=== PATIENT | female | born 1955 | race Caucasian/White ===

== ENCOUNTER 2018-01-22 09:28 | Day surgery (SDC) | payer MEDICARE, OTHER ==
[~2018-01-22] VITALS: Ht 167.6 cm; Wt 82.1 kg
[2018-01-22] VITALS (11 sets, daily range): BP systolic 101–139; BP diastolic 56–79
[~2018-01-22 09:28] MED LIST: Tetracaine 0.5% Opth 4ml Soln RIGHT EYE SCH
[2018-01-22] MEDS ORDERED: Phenylephrine 2.5% Op 2ml Soln ONE (10:02)
[2018-01-22] MEDS ORDERED: Tetracaine 0.5% Opth 4ml Soln ONE ×2 (10:02→10:45)
[2018-01-22] MEDS ORDERED: Vigamox Opth Soln 3ml ONE (10:02)
[2018-01-22] MEDS ORDERED: Cyclopentolate 1% Opth Sol 2ml ONE (10:02)
[2018-01-22] MEDS: Phenylephrine 2.5% Op 2ml Soln RIGHT EYE SCH ×3 (10:15→10:51)
[2018-01-22] MEDS: Vigamox Opth Soln 3ml RIGHT EYE SCH ×3 (10:15→10:51)
[2018-01-22] MEDS: Cyclopentolate 1% Opth Sol 2ml RIGHT EYE SCH ×3 (10:15→10:51)
[2018-01-22] MEDS ORDERED: Lidocaine 1% MPF 10mg/ml 5ml ONE (10:43)
[2018-01-22] MEDS ORDERED: Lidocaine 4% Amp ONE (10:43)
[2018-01-22] MEDS ORDERED: EPINEPHrine 1mg/1ml Amp ONE (10:43)
[2018-01-22] MEDS ORDERED: Lidocaine 2% MPF 5ml Vial INJ ONE (10:43)
[2018-01-22] MEDS ORDERED: BSS 15ml BTL ONE (10:44)
[2018-01-22] MEDS ORDERED: BSS 500ml btl ONE (10:44)
[2018-01-22] MEDS ORDERED: Dexamethasone 4mg/ml vial ONE (10:44)
[2018-01-22] MEDS ORDERED: Maxitrol Opth Oint 3.5gm ONE (10:44)
[2018-01-22] MEDS ORDERED: Povidone-Iodine 5% opth solution ONE (10:44)
[2018-01-22] MEDS ORDERED: Acetylcholine Injection (OR) ONE (10:45)
[2018-01-22] MEDS ORDERED: Bupivacaine 0.75% 30ml vial INJ ONE (10:45)
[2018-01-22] MEDS ORDERED: XOPENEX HFA15 GM IH (10:50)
[2018-01-22] MEDS ORDERED: MONTELUKAST SOD10 MG ORAL (10:50)
[2018-01-22] MEDS ORDERED: ATORVASTATIN CA20 MG ORAL (10:50)
[2018-01-22] MEDS ORDERED: BUSPIRONE HCL5 M1 ORAL (10:50)
[2018-01-22] MEDS ORDERED: AMLODIPINE BESY10 MG ORAL (10:50)
[2018-01-22] MEDS ORDERED: PANTOPRAZOLE SO40 MG ORAL (10:50)
[2018-01-22] MEDS ORDERED: WELLBUTRIN XL150 MG ORAL (10:50)
[2018-01-22] MEDS ORDERED: GABAPENTIN100 MG ORAL (10:50)
[2018-01-22] MEDS ORDERED: DIPHENHYDRAMINE25 M1 ORAL (10:50)
[2018-01-22] MEDS ORDERED: ZYRTEC10 MG ORAL (10:50)
[2018-01-22] MEDS ORDERED: CYCLOBENZAPRINE10 MG ORAL (10:50)
[2018-01-22] MEDS ORDERED: XANAX0.5 MG ORAL (10:50)
[2018-01-22] MEDS ORDERED: FOSAMAX70 MG ORAL (10:50)
[2018-01-22] MEDS ORDERED: FLONASE ALLERG9.9 ML NS (10:50)
[2018-01-22] MEDS ORDERED: CELEXA40 MG ORAL (10:50)
--- NOTE | 2018-01-22 11:13 | Pre-Procedure Note/Attestation ---
Pre-Procedure Note/Attestation Complete Prior to Procedure Planned Procedure: right Procedure Narrative: cataract extraction with intraocular lens implant Indications for Procedure Pre-Operative Diagnosis: right cataract Attestation I attest that I discussed the nature of the procedure; its benefits; risks and complications; and alternatives (and the risks and benefits of such alternatives ), prior to the procedure, with the patient (or the patient's legal route sales representative). I attest that, if there was a reasonable possibility of needing a blood transfusion, the patient (or the patient's legal route sales representative) was given the [facility] standardized written summary, pursuant to the Jay Jay Beti Blood Safety Act ([place] Health and Safety Code # 1645, as amended). I attest that I re-evaluated the patient just prior to the surgery and that there has been no change in the patient's H&P, except as documented below: Barrett Estevez MD January 22, 2018 11:13
[2018-01-22] MEDS ORDERED: LR 1000ml 1,000 ML IVLG SCH (11:53)
[2018-01-22] MEDS ORDERED: fentaNYL 100 mcg/2 mL IV PRN (12:00)
[2018-01-22] MEDS ORDERED: Midazolam 2mg/2ml Inj IVP PRN (12:00)
[2018-01-22] MEDS ORDERED: DiphenhydrAMINE 50mg/ml Inj IVP PRN (12:00)
--- NOTE | 2018-01-22 12:05 | Anethesia Preoperative Eval ---
Anesthesia Pre-op PMH/ROS General Date of Evaluation: January 22, 2018 Time of Evaluation: 11:05 Anesthesiologist: Jordyn ASA Score: ASA 3 Mallampati Score Class I : Soft palate, uvula, fauces, pillars visible Class II: Soft palate, uvula, fauces visible Class III: Soft palate, base of uvula visible Class IV: Only hard plate visible Mallampati Classification: Class III Surgeon: Herb Diagnosis: Cataract right eye Surgical Procedure: Extraction of cataract with IOL Allergies: Coded Allergies: No Known Allergies (Unverified , 01/21/18) Past Medical History Cardiovascular: Reports: HTN Pulmonary: Reports: asthma, COPD, FRITZ Gastrointestinal/Genitourinary: Reports: GERD Neurologic/Psychiatric: Reports: depression/anxiety HEENT: Reports: cataract (R) PMH Narrative: HTN, COPD, asthma, GERD, FRITZ PSxH Narrative: Anesthesia Pre-op Phys. Exam Physician Exam Last Vital Signs Date Time Temp Pulse Resp B/P (MAP) Pulse Ox O2 Delivery O2 Flow Rate FiO2 01/22/18 10:32 98.4 94 18 139/79 97 Room Air 98.4 Constitutional: NAD Neurologic: CN 2-12 intact Cardiovascular: RRR, no M/R/G Respiratory: CTA Gastrointestinal: S/NT/ND Airway Exam Mallampati Score: Class II MO: full ROM: full Dentures: upper, lower Anesthesia Pre-op A/P Studies Pre-op Studies: EKG - LBBB Risk Assessment & Plan Assessment: Class 3 patient for extraction of cataract under GA Plan: GA, LMA Status Change Before Surgery: No Pre-Antibiotics Drug: None Jay Jay Cobb MD January 22, 2018 12:05
--- NOTE | 2018-01-22 12:06 | Immediate Post-Op Evaluation ---
Immediate Post-Op Evalulation Immediate Post-Op Evalulation Procedure: Extraction of cataract with IOL right eye Date of Evaluation: January 22, 2018 Time of Evaluation: 12:35 IV Fluids: 650 Blood Pressure Systolic: 128 Blood Pressure Diastolic: 78 Pulse Rate: 99 Respiratory Rate: 20 O2 Sat by Pulse Oximetry: 100 Temperature (Fahrenheit): 97.4 Pain Score (1-10): 0 Nausea: No Vomiting: No Complications No complication Patient Status: awake, patent, none Hydration Status: adequate Drug: None Jay Jay Cobb MD January 22, 2018 12:06
--- NOTE | 2018-01-22 12:35 | 48 Hour Post Anesthesia Eval ---
Post Anesthesia Evaluation Procedure: Extraction of cataract with IOL right eye Date of Evaluation: January 22, 2018 Time of Evaluation: 13:00 Blood Pressure Systolic: 130 0: 78 Pulse Rate: 94 Respiratory Rate: 18 O2 Sat by Pulse Oximetry: 99 Airway: patent Nausea: No Vomiting: No Pain Intensity: 0 Hydration Status: adequate Cardiopulmonary Status: Stable Mental Status/LOC: patient returned to baseline Follow-up Care/Observations: As per surgery Post-Anesthesia Complications: No anesthetic complication Follow-up care needed: N/A Jay Jay Cobb MD January 22, 2018 12:35
--- NOTE | 2018-01-22 12:41 | Discharge Instructions ---
Discharge Instructions Discharge Instructions Diet: regular Resume Normal Activity?: No Activity: light activity Follow Up Orders Return Dr. Estevez's office in 24 hours Return to Work/School on: February 07, 2018 Special Instructions bring all prescribed eye drops to the office For Surgical Patients Dressing Care: other Elevate: other May shower: No Contact your physician for: pain For Congestive Heart Failure Reminder Report to your physician any weight gain of 5 pounds or more in one week. Barrett Estevez MD January 22, 2018 12:41
--- NOTE | 2018-01-23 00:30 | Operative Note - Dictated ---
DATE OF OPERATION: 01/22/2018 PREOPERATIVE DIAGNOSES: 1. Degenerative cataract, right eye. 2. Epiretinal membrane, right eye. POSTOPERATIVE DIAGNOSES: 1. Degenerative cataract, right eye. 2. Epiretinal membrane, right eye. PROCEDURE: Right extracapsular cataract extraction by phacoemulsification and primary insertion of posterior chamber intraocular lens implant. SURGEON: Barrett Estevez M.D. ANESTHESIA: MAC by Dr. Cobb. INDICATIONS: This patient suffers from many systemic and mental disorders and has decreased function and quality of life because of vision. Both she and the staff in the house she lives have noticed a decrease in performance due to vision and requests the performance of cataract surgery. Because of the above issues, general anesthesia was chosen. FINDINGS: See indications and diagnoses. DESCRIPTION OF PROCEDURE: The patient received preoperatively topical antibiotics, dilating drops, tetracaine, and was brought to the operating room and given satisfactory general anesthesia by Dr. Cobb. The patient was then prepped and draped in usual manner. A Paty speculum was placed and a vertical incision was placed at the lateral limbus just anterior to the arcade, 3 mm wide. The anterior chamber was penetrated at the 6 and 12 o'clock positions and slowly decompressed. Shugarcaine was then instilled to further dilate the pupil followed by viscoelastic. The anterior chamber was penetrated through the vertical incision with a microkeratome. A capsulorrhexis was done followed by hydrodissection. The nucleus was phacoemulsified with a [employer] Inf[employer] unit and cortical remnants were gently removed with the I/A tip of the same unit. The intraocular lens was removed from its sac. It is a model [id number] from [employer]. The power is 20.5 D, the serial number #[id number]. The lens was carefully inspected, loaded onto a [place] II delivery system and delivered into the capsular bag with the haptics dialed to the horizontal meridian and the tap test confirming the adequate placement of the lens. The I/A tip was used to remove viscoelastic. Miochol was then instilled creating narrowing of the pupil. The incision was hydrated and despite them being watertight, the main incision was closed with a single 10-0 nylon suture due to the patient's disposition. Dexamethasone was injected into the inferior tenon space. Also, 2 mL of Xylocaine 2% with epinephrine were injected into the inferior tenon space in order to control postoperative pain. Vigamox drops and TobraDex ointment were applied. The eye was closed and patch and shield were applied. The patient tolerated well the procedure and left the operating room in good condition. Barrett Estevez M.D. DR: KOLBY JOB#: [id number] CC: MAGDALENA
== END 2018-01-22 14:00 | disposition home or self-care (01) ==
LOC: SUR 09:28
DX: H26.221 Cataract secondary to ocular disorders (degenerative) (inflammatory), right eye (principal); H35.371 Puckering of macula, right eye; F41.9 Anxiety disorder, unspecified; K21.9 Gastro-esophageal reflux disease without esophagitis; E78.5 Hyperlipidemia, unspecified; I10 Essential (primary) hypertension; Z87.891 Personal history of nicotine dependence; G47.33 Obstructive sleep apnea (adult) (pediatric); M81.0 Age-related osteoporosis without current pathological fracture; J44.9 Chronic obstructive pulmonary disease, unspecified; F32.9 Major depressive disorder, single episode, unspecified
CPT/HCPCS: 66984; J0171; J1100; J3010; J3370; J3490

== ENCOUNTER 2018-03-05 09:21 | Day surgery (SDC) | payer MEDICARE, OTHER ==
[2018-03-05] VITALS (10 sets, daily range): BP systolic 109–140; BP diastolic 68–82
[~2018-03-05] VITALS: Ht 167.6 cm; Wt 81.6 kg
[~2018-03-05 09:21] MED LIST changes: +AMLODIPINE BESY10 MG ORAL; +ATORVASTATIN CA20 MG ORAL; +BUSPIRONE HCL5 M1 ORAL; +CELEXA40 MG ORAL; +CYCLOBENZAPRINE10 MG ORAL; +DIPHENHYDRAMINE25 M1 ORAL; +FLONASE ALLERG9.9 ML NS; +FOSAMAX70 MG ORAL; +GABAPENTIN100 MG ORAL; +MONTELUKAST SOD10 MG ORAL; +PANTOPRAZOLE SO40 MG ORAL; +Tetracaine 0.5% Opth 4ml Soln LEFT EYE SCH; -Tetracaine 0.5% Opth 4ml Soln RIGHT EYE SCH; +WELLBUTRIN XL150 MG ORAL; +XANAX0.5 MG ORAL; +XOPENEX HFA15 GM IH; +ZYRTEC10 MG ORAL
[2018-03-05] MEDS ORDERED: Cyclopentolate 1% Opth Sol 2ml ONE (09:39)
[2018-03-05] MEDS: Vigamox Opth Soln 3ml LEFT EYE SCH ×3 (09:48→10:19)
[2018-03-05] MEDS: Cyclopentolate 1% Opth Sol 2ml LEFT EYE SCH ×3 (09:48→10:19)
[2018-03-05] MEDS: Phenylephrine 2.5% Op 2ml Soln LEFT EYE SCH ×3 (09:48→10:19)
[2018-03-05] MEDS ORDERED: BREO ELLIPTA 11 EACH IH (10:00)
[2018-03-05] MEDS ORDERED: ATROVENT HFA12.9 GM IH (10:01)
[2018-03-05] MEDS ORDERED: EPINEPHrine 1mg/1ml Amp ONE (10:27)
[2018-03-05] MEDS ORDERED: Lidocaine 2% MPF 5ml Vial INJ ONE (10:28)
[2018-03-05] MEDS ORDERED: Alfentanil 2ml Inj ONE (10:47)
[2018-03-05] MEDS ORDERED: Midazolam 2mg/2ml Inj ONE (10:48)
[2018-03-05] MEDS ORDERED: Propofol 200mg/20ml IV ONE (11:00)
[2018-03-05] MEDS ORDERED: Lidocaine 1% MPF 10mg/ml 5ml ONE (11:00)
[2018-03-05] MEDS ORDERED: NS Irrig 1000ml ONE (11:00)
[2018-03-05] MEDS ORDERED: LR 1000ml ONE (11:00)
[2018-03-05] MEDS ORDERED: Sterile Water Irrig 1000ml IRRIG ONE (11:00)
[2018-03-05] MEDS ORDERED: LR 1000ml 1,000 ML IVLG SCH (11:02)
--- NOTE | 2018-03-05 11:08 | Anethesia Preoperative Eval ---
Anesthesia Pre-op PMH/ROS General Date of Evaluation: Mar 05, 2018 Time of Evaluation: 11:06 Anesthesiologist: Shane ASA Score: ASA 3 Mallampati Score Class I : Soft palate, uvula, fauces, pillars visible Class II: Soft palate, uvula, fauces visible Class III: Soft palate, base of uvula visible Class IV: Only hard plate visible Mallampati Classification: Class III Surgeon: Herb Diagnosis: Cataract OS Surgical Procedure: Cat Ext IOL OS Anesthesia History: none Social History: smoking Family History: no anesthesia problems Allergies: Coded Allergies: No Known Allergies (Unverified , 01/21/18) Medications: see eMAR Past Medical History Cardiovascular: Reports: HTN, other - HL Pulmonary: Reports: asthma, COPD, other - Pneumonia Gastrointestinal/Genitourinary: Reports: GERD, other - Hiatal Hernia Neurologic/Psychiatric: Reports: depression/anxiety HEENT: Reports: cataract (L), cataract (R) Other: obesity - BMI 31 PSxH Narrative: C/S, Esophagael SX Anesthesia Pre-op Phys. Exam Physician Exam Last Vital Signs Date Time Temp Pulse Resp B/P (MAP) Pulse Ox O2 Delivery O2 Flow Rate FiO2 03/05/18 10:10 97.3 97 18 126/68 96 Room Air 97.3 Constitutional: NAD Neurologic: CN 2-12 intact Cardiovascular: RRR Respiratory: CTA Gastrointestinal: S/NT/ND Airway Exam Mallampati Score: Class III MO: full ROM: limited Teeth: missing, intact Anesthesia Pre-op A/P Risk Assessment & Plan Assessment: ASA 3 Plan: GA Status Change Before Surgery: No Sahrad Lynn MD Mar 05, 2018 11:08
--- NOTE | 2018-03-05 11:09 | Immediate Post-Op Evaluation ---
Immediate Post-Op Evalulation Immediate Post-Op Evalulation Procedure: Cat Ext IOL OS Date of Evaluation: Mar 05, 2018 Time of Evaluation: 12:34 IV Fluids: 600 LR Blood Products: 0 Estimated Blood Loss: 1 Urinary Output: 0 Blood Pressure Systolic: 140 Blood Pressure Diastolic: 81 Pulse Rate: 98 Respiratory Rate: 16 O2 Sat by Pulse Oximetry: 100 Temperature (Fahrenheit): 97.8 Pain Score (1-10): 1 Nausea: No Vomiting: No Complications 0 Patient Status: awake, reacts, patent, none Hydration Status: adequate Sharad Lynn MD Mar 05, 2018 11:09
--- NOTE | 2018-03-05 11:10 | 48 Hour Post Anesthesia Eval ---
Post Anesthesia Evaluation Procedure: Cat Ext IOL OS Date of Evaluation: Mar 05, 2018 Time of Evaluation: 14:46 Blood Pressure Systolic: 152 0: 78 Pulse Rate: 91 Respiratory Rate: 18 Temperature (Fahrenheit): 98.2 O2 Sat by Pulse Oximetry: 97 Airway: patent Nausea: No Vomiting: No Pain Intensity: 1 Hydration Status: adequate Cardiopulmonary Status: Stable Mental Status/LOC: patient returned to baseline Follow-up Care/Observations: 0 Post-Anesthesia Complications: 0 Follow-up care needed: ready to discharge Sharad Lynn MD Mar 05, 2018 11:10
[2018-03-05] MEDS ORDERED: oxyCODONE HCL/Acetaminophen 5/325mg ORAL PRN (11:15)
[2018-03-05] MEDS ORDERED: Midazolam 2mg/2ml Inj IVP PRN (11:15)
[2018-03-05] MEDS ORDERED: Metoclopramide 10mg/2ml Inj IVP PRN (11:15)
[2018-03-05] MEDS ORDERED: Hydromorphone 0.5mg/0.5ml inj IVP PRN (11:15)
[2018-03-05] MEDS ORDERED: Ketorolac 30mg Inj IV PRN ×2 (11:15)
[2018-03-05] MEDS ORDERED: Labetalol 5mg/ml 20ml vial IV PRN (11:15)
[2018-03-05] MEDS ORDERED: DiphenhydrAMINE 50mg/ml Inj IVP PRN (11:15)
[2018-03-05] MEDS ORDERED: HYDROcodone/Acetamin 7.5/325 tab ORAL PRN (11:15)
[2018-03-05] MEDS ORDERED: fentaNYL 100 mcg/2 mL IV PRN (11:15)
[2018-03-05] MEDS ORDERED: Atropine Inj 1mg/10ml Syr IV PRN (11:15)
[2018-03-05] MEDS ORDERED: Norco 5mg/325mg tab ORAL PRN (11:15)
[2018-03-05] MEDS ORDERED: LORazepam Inj 2mg/ml 1ml IV PRN (11:15)
--- NOTE | 2018-03-05 11:29 | Pre-Procedure Note/Attestation ---
Pre-Procedure Note/Attestation Complete Prior to Procedure Planned Procedure: left Procedure Narrative: cataract extraction with intraocular lens implant Indications for Procedure Pre-Operative Diagnosis: left cataract Attestation I attest that I discussed the nature of the procedure; its benefits; risks and complications; and alternatives (and the risks and benefits of such alternatives ), prior to the procedure, with the patient (or the patient's legal human resources representative). I attest that, if there was a reasonable possibility of needing a blood transfusion, the patient (or the patient's legal human resources representative) was given the [facility] standardized written summary, pursuant to the Jay Jay Beti Blood Safety Act ([place] Health and Safety Code # 1645, as amended). I attest that I re-evaluated the patient just prior to the surgery and that there has been no change in the patient's H&P, except as documented below: Barrett Estevez MD Mar 05, 2018 11:29
--- NOTE | 2018-03-05 12:30 | Brief Operative Note ---
Immediate Post Operative Note Operative Note Chief Complaint: blurred vision Pre-op Diagnosis: left cataract Procedure: left cataract extraction with intraocular lens implant left eye. removal of suture right eye Post-op Diagnosis: same Post-op Diagnosis: same as pre-op Surgeon: barrett carbajal Police Commissioner: none Additional Surgeons: none Anesthesiologist: Ilana Anesthesia: general Specimen: none Complications: none Condition: stable Fluids: LR tko Estimated Blood Loss: none Drains: none Implant(s) used?: Yes Barrett Carbajal MD Mar 05, 2018 12:30
--- NOTE | 2018-03-05 19:30 | Operative Note - Dictated ---
DATE OF OPERATION: 03/05/2018 PREOPERATIVE DIAGNOSES: 1. Degenerative cataract, left eye. 2. Pseudophakia, right eye. 3. Suture at surgical incision, right eye. POSTOPERATIVE DIAGNOSES: 1. Degenerative cataract, left eye. 2. Pseudophakia, right eye. 3. Suture at surgical incision, right eye. PROCEDURE: 1. Left extracapsular cataract extraction by phacoemulsification and primary insertion of posterior chamber intraocular lens implant. 2. Removal of suture, right eye. SURGEON: Barrett Estevez M.D. ANESTHESIA: General. ANESTHESIOLOGIST: Dr. Lynn. INDICATIONS: The best corrected vision is 20/50. The patient complains of blurred vision resulting in decreased ability to read and watch TV. She underwent a similar procedure in the fellow eye and is now anisometropic contributing to her problems. Also, as part of her previous cataract surgery which was successful, her incision was sutured and that suture will be removed at the end of the procedure. FINDINGS: See indications and diagnoses. DESCRIPTION OF PROCEDURE: The patient received preoperatively topical antibiotics, dilating drops, tetracaine, and was brought into the operating room and given satisfactory sedation by the anesthesiologist. A total of 10 mL of mixture half and half Xylocaine 2% with epinephrine and Marcaine 0.75% were injected as modified Navarro akinesia and peribulbar anesthesia (4 mL). The patient was then prepped and draped in the usual manner. A Paty speculum was placed and a 3 mm wide incision was made at the lateral limbus just anterior to the arcades. The anterior chamber was penetrated at the 6 and 12 oclock position and slowly decompressed. A nonpreserved 1% Xylocaine was used to further enhance intraocular anesthesia. Under viscoelastic, the anterior chamber was penetrated through the vertical incision with a 3-mm wide keratome. A capsulorrhexis was done followed by hydrodissection. The nucleus was phacoemulsified with [employer] Inf[employer] unit and [employer] technology. Cortical remnants were removed with the IA tip of the same unit. The intraocular lens was removed from its pack. The lens is a model [id number] from [employer]. The power was 21.5 D. The serial number is [id number]. The lens was loaded onto the [employer] II delivery system, and injected into the capsular bag with the haptics dialed to the vertical meridian and the tap test confirming the adequate placement of the lens. The IA tip was then used to replace viscoelastic with balanced salt solution. The incisions were hydrated and were found to be watertight. Prior to that, Miochol was injected to reduce pupil size. Dexamethasone was injected into the inferior Tenon space, 1 mL. Vigamox drops and TobraDex ointment were applied. The eye was closed. The patch and shield were applied. At this point, attention was given to the right eye. It was . A speculum was placed and the suture to be removed was located. It was cut with Superblade and removed with forceps. Vigamox drops were applied. The eye was closed. The patient tolerated well the procedure and left the operating room in good condition. Final diagnoses and procedures are as above. Barrett Estevez M.D. DR: Edinson JOB#: [id number] CC:
== END 2018-03-05 13:50 | disposition home or self-care (01) ==
LOC: SUR 09:21
DX: H26.221 Cataract secondary to ocular disorders (degenerative) (inflammatory), right eye (principal); Z96.1 Presence of intraocular lens; Z87.891 Personal history of nicotine dependence; I10 Essential (primary) hypertension; M81.0 Age-related osteoporosis without current pathological fracture; J44.9 Chronic obstructive pulmonary disease, unspecified; K21.9 Gastro-esophageal reflux disease without esophagitis; F32.9 Major depressive disorder, single episode, unspecified; F41.9 Anxiety disorder, unspecified
CPT/HCPCS: 66850; 66986; J0171; J1885; J2250; J2704; J3010; J3490; J7120; V2632; 94003; 94150